=== PATIENT | female | born 1935 | race Caucasian/White ===

== ENCOUNTER 2022-01-03 14:45 | Observation (INO) | payer MEDICARE, OTHER ==
[~2022-01-03] VITALS: Ht 157.5 cm; Wt 41.6 kg
[2022-01-03 17:25] LABS: BASOPHILS % (AUTO) 0.4 % (0.0-5.0); EOSINOPHILS % (AUTO) 2.2 % (0.0-8.0); HEMATOCRIT 39.9 % (36-48); LYMPHOCYTES % (AUTO) 22.7 % (21.0-51.0); MEAN CORPUSCULAR HGB CONC 32.8 g/dL (32.0-36.0); MEAN CORPUSCULAR VOLUME 94.5 fL (79-99); MONOCYTES % (AUTO) 4.1 % (3.0-13.0); NEUTROPHILS % (AUTO) 70.3 % (40.0-77.0); PLATELET COUNT (AUTO) 258 K/uL (130-400); RED BLOOD CELL COUNT(AUTO) 4.22 MIL/uL (4.00-5.50); RED CELL DISTRIBUTION WIDTH 12.3 % (11.0-15.5); WHITE BLOOD COUNT (AUTO) 12.9 K/uL (4.8-10.8)
[2022-01-03] MEDS ORDERED: 0.9%NACL 1000ML 1,000 ML IV ONE (17:30)
[2022-01-03 17:43] LABS: INR 1.08 (0.85-1.15); PROTHROMBIN TIME 11.7 SEC (9.6-11.6)
[2022-01-03 17:44] LABS: PARTIAL THROMBOPLASTIN TIME 29.5 SEC (26.3-35.5)
[2022-01-03 17:49] LABS: CARBON DIOXIDE 26 mmol/L (21-32); CHLORIDE 101 mmol/L (101-111); CREATININE 0.7 mg/dL (0.5-1.5); GLOMERULAR FILTR. RATE CALC 84 mL/min (>60); GLUCOSE,RANDOM 199 mg/dL (70-105); POTASSIUM 3.9 mmol/L (3.5-5.1); SODIUM SERUM 134 mmol/L (136-145); UREA NITROGEN, BLOOD 16 mg/dL (7-18)
[2022-01-03 17:54] LABS: ALANINE AMINOTRANSFERASE 96 U/L (12-78); ALBUMIN 3.1 g/dL (3.5-5.0); ASPARTATE AMINOTRANSFERASE 158 U/L (10-37); BILIRUBIN,TOTAL 0.8 mg/dL (0.2-1.0); TOTAL PROTEIN, SERUM 7.1 g/dL (6.0-8.3)
[2022-01-03 17:55] LABS: CRP QUANTITATIVE < 2.00 mg/L (0.00-9.0)
[2022-01-03] MEDS: ZOSYN 3.375GM +NS 50ML IV SCH (18:02)
[2022-01-03 21:20] VITALS: BP 143/76
[2022-01-03 21:47] LABS: APPEARANCE,URINE Clear (CLEAR); BILIRUBIN,URINE Negative (NEGATIVE); COLOR,URINE Yellow (YELLOW); GLUCOSE, URINE (UA) >=1000 mg/dL (NEGATIVE); KETONES,URINE Negative (NEGATIVE); LEUKOCYTE ESTERASE ,URINE Negative (NEGATIVE); NITRATE,URINE Negative (NEGATIVE); OCCULT BLOOD,URINE Negative (NEGATIVE); PROTEIN,URINE Trace mg/dL (NEGATIVE); UROBILINOGEN,URINE 0.2 mg/dL (0.2-1.0)
[2022-01-03 21:59] LABS: BACTERIA,URINE None Seen /HPF (None Seen); RBC,URINE 0-1 /HPF (0-1); SQUAMOUS EPITHELIAL CELL,UR Rare /HPF (0-2); WBC,URINE 0-1 /HPF (0-1)
[2022-01-03] MEDS ORDERED: VITA400C79 PO (22:24)
[2022-01-03] MEDS ORDERED: MILK THISTLE PO (22:24)
[2022-01-03] MEDS ORDERED: DONE-51 PO (22:24)
[2022-01-03] MEDS ORDERED: ACET650T9 PO (22:24)
[2022-01-03] MEDS ORDERED: ESOM40CA54 PO (22:24)
[2022-01-03] MEDS ORDERED: SUCR1ORA15 PO (22:24)
[2022-01-03] MEDS ORDERED: BISA5TAB12 PO (22:26)
[2022-01-03] MEDS ORDERED: CLON1TAB23 PO (22:26)
[2022-01-04 00:02] VITALS: BP 127/73
[2022-01-04] MEDS: ZOSYN 3.375GM +NS 50ML IV SCH ×2 (00:35→08:48)
[2022-01-04 03:52] VITALS: BP 101/63
[2022-01-04 07:30] VITALS: BP 117/70
[2022-01-04] MEDS ORDERED: FAMOTIDINE 20MG VIAL IV SCH (09:26)
[2022-01-04 09:28] LABS: HEMATOCRIT 35.7 % (36-48); MEAN CORPUSCULAR HEMOGLOBIN 30.5 pg (27.0-33.0); MEAN CORPUSCULAR HGB CONC 32.8 g/dL (32.0-36.0); MEAN CORPUSCULAR VOLUME 93.2 fL (79-99); RED BLOOD CELL COUNT(AUTO) 3.83 MIL/uL (4.00-5.50); RED CELL DISTRIBUTION WIDTH 12.7 % (11.0-15.5); WHITE BLOOD COUNT (AUTO) 9.5 K/uL (4.8-10.8)
[2022-01-04 09:44] LABS: CREATININE 0.7 mg/dL (0.5-1.5); POTASSIUM 4.1 mmol/L (3.5-5.1)
[2022-01-04 10:45] VITALS: BP 125/71
[2022-01-04] MEDS ORDERED: AMOX-426 PO (13:30)
[2022-01-06] MEDS ORDERED: LINE600I IV (00:43)
[2022-01-06] MEDS ORDERED: VITAD50000 PO (00:43)
== END 2022-01-04 16:20 | disposition home or self-care (01) ==
LOC: EDH 14:45 → EDHIP 16:44 → UNDOADMOB 16:44 → EDHIP 17:04 → 3AH 21:00
PROVIDERS: ADMIT Internal Medicine; ATTEND Internal Medicine
DX: T85.520A Displacement of bile duct prosthesis, initial encounter (principal); K83.1 Obstruction of bile duct; K86.9 Disease of pancreas, unspecified; D72.829 Elevated white blood cell count, unspecified; K59.00 Constipation, unspecified; R64 Cachexia; R79.89 Other specified abnormal findings of blood chemistry; F03.90 Unspecified dementia, unspecified severity, without behavioral disturbance, psychotic disturbance, mood disturbance, and anxiety; I10 Essential (primary) hypertension; E88.09 Other disorders of plasma-protein metabolism, not elsewhere classified; E87.1 Hypo-osmolality and hyponatremia; I71.4 Abdominal aortic aneurysm, without rupture; Z79.899 Other long term (current) drug therapy; Z68.1 Body mass index [BMI] 19.9 or less, adult; Z90.710 Acquired absence of both cervix and uterus
CPT/HCPCS: 36415 ×2; 74176; 80048; 80053; 81001; 83690; 85025; 85027; 85610; 85730; 86140; 96365; 96366 ×3; 99284; G0378 ×23; J2543 ×3; J7030

== ENCOUNTER → 2022-01-03 | Outpatient (CLI) | payer MEDICARE, OTHER ==
[~2022-01-03] MED LIST: ACET650T9 PO; AMOX-426 PO; BISA5TAB12 PO; CLON1TAB23 PO; DONE-51 PO; ESOM40CA54 PO; FENTANYL CITRATE PF 50 MCG/1 ML 2ML VIAL ONE; LIDOCAINE PF 100MG/5ML (2%) SYRINGE 5ML ONE; LINE600I IV; MILK THISTLE PO; ONDANSETRON 4MG INJ ONE; PROPOFOL 10 MG/ML 20ML VIAL IV ONE; ROCURONIUM 10MG/1ML SYR 10 MG/ML ML ONE; SUCR1ORA15 PO; VITA400C79 PO; VITAD50000 PO
== END | disposition home or self-care (01) ==
LOC: DAH 10:00 → EDSTATUS 01-07 08:05
PROVIDERS: ATTEND Internal Medicine Gastroenterology
DX: Z01.812 Encounter for preprocedural laboratory examination (principal); K83.1 Obstruction of bile duct; K86.9 Disease of pancreas, unspecified; Z20.822 Contact with and (suspected) exposure to COVID-19
CPT/HCPCS: 87635; C9803